=== PATIENT | female | born 1960 | race Caucasian/White ===

== ENCOUNTER 2022-08-24 07:33 | Inpatient (IN) ==
--- NOTE | 2022-06-20 09:19 | PAT Medication Instructions ---
Medication Instructions Date of Service June 20, 2022 Home Medications aspirin 81 mg capsule 81 mg PO QAM ibuprofen 800 mg tablet 800 mg PO TID insulin glargine U-300 conc 300 unit/mL (1.5 mL) subcutaneous pen (Toujeo SoloStar U-300 Insulin) 50 unit subcut BID insulin lispro 100 unit/mL subcutaneous pen 6 unit subcut AC metformin 500 mg tablet 500 mg PO QAM semaglutide 1 mg/dose (2 mg/1.5 mL) subcutaneous pen injector (Ozempic) 1 mg subcut WK tofacitinib 5 mg tablet (Xeljanz) 5 mg PO BID Continue as directed semaglutide 1 mg/dose (2 mg/1.5 mL) subcutaneous pen injector (Ozempic) 1 mg subcut WK ASK your surgeon for instructions ibuprofen 800 mg tablet 800 mg PO TID ASK your prescriber and surgeon tofacitinib 5 mg tablet (Xeljanz) 5 mg PO BID aspirin 81 mg capsule 81 mg PO QAM DO NOT take the morning of surgery insulin lispro 100 unit/mL subcutaneous pen 6 unit subcut AC metformin 500 mg tablet 500 mg PO QAM Take evening before surgery insulin glargine U-300 conc 300 unit/mL (1.5 mL) subcutaneous pen (Toujeo SoloStar U-300 Insulin) 50 unit subcut BID insulin lispro 100 unit/mL subcutaneous pen 6 unit subcut AC Insulin Dependent Diabetic Patients * Test your blood sugar the morning of surgery * If Blood Sugar is GREATER THAN 150, take HALF of your regular dose of: insulin glargine U-300 conc 300 unit/mL (1.5 mL) subcutaneous pen (Toujeo SoloStar U- 300 Insulin) take 25 minutes * If Blood Sugar is LESS THAN 150, DO NOT TAKE ANY: insulin glargine U-300 conc 300 unit/mL (1.5 mL) subcutaneous pen (Toujeo SoloStar U-300 Insulin) Other Notes If you have any questions please call us at [phone] or [phone] or [phone] or [phone]
--- NOTE | 2022-06-26 13:24 | Anesthesiology Consultation ---
Date of Service June 26, 2022 Assessment & Plan (1) Encounter for pre-operative examination: - COVID screening: Per assessment on 06/26: No known COVID-19 positive contacts or current COVID-19 related symptoms. Travel screen negative. Patient vaccinated. At surgeon discretion if preop Covid testing being done. - Check BSG AM DOS - Hx post-op nausea: Per patient, significant improvement with scope patch use in the past. Scope patch ordered for AM DOS. - Patient acceptable risk for surgery pending surgeon-ordered cardiology clearance ([facility]/surgeon obtaining). Chart Review Chart Review: Patient seen in Pre Admission Testing Teaching & Discussion Pre-Anesthesia Teaching/Discussion Notes: Instructed NPO after midnight before surgery,except medications with 15 cc of water. Medication instructions prov ided according to the PAT guidelines. History Surgery Operation Date: 07/10/22 11:05 Proposed Procedures p L2-L5 Decompression and Fusion, Spinal Cord Monitoring - Dominguez Degroot, Height/Weight Height: 5 ft 7.5 in Weight: 86.183 kg Allergies Allergy/AdvReac Type Severity Reaction Status Date / Time No Known Allergies Allergy Verified 06/19/22 12:19 Medications Home Medications Medication Instructions Recorded Confirmed Last Taken aspirin 81 mg capsule 81 mg PO QAM 06/19/22 06/19/22 Unknown ibuprofen 800 mg tablet 800 mg PO TID 06/19/22 06/19/22 Unknown insulin glargine U-300 conc 300 50 unit subcut BID 06/19/22 06/19/22 Unknown unit/mL (1.5 mL) subcutaneous pen (Toujeo SoloStar U-300 Insulin) insulin lispro 100 unit/mL 6 unit subcut AC 06/19/22 06/19/22 Unknown subcutaneous pen metformin 500 mg tablet 500 mg PO QAM 06/19/22 06/19/22 Unknown semaglutide 1 mg/dose (2 mg/1.5 1 mg subcut WK 06/19/22 06/19/22 Unknown mL) subcutaneous pen injector (Ozempic) tofacitinib 5 mg tablet (Xeljanz) 5 mg PO BID 06/19/22 06/19/22 Unknown Past Medical History Medical History CAD (coronary artery disease) s/p stent (2019) Follows with [facility] Chronic back pain Diabetes mellitus, type 2 History of COVID-19 02/2020 Rheumatoid arthritis Exercise / Class Metabolic Activity III < 4 Walking/Shop/Light housework Past Surgical History Surgical History History of back surgery laser surgery with spur removed History of cardiac cath 2019 > stent History of heart artery stent 2019 > stent Hx of foot surgery left PONV (postoperative nausea and vomiting) Past Anesthesia History No Hx of Anesthesia Complications (except post-op nausea) and No Family Hx of Anesthesia Complications History of PONV History of PONV (+ nausea (improvement with scope patch in past)) Social History Smoking Status: Never smoker Do You Dip or Chew Tobacco: No Hx Alcohol Use: No Hx Substance Use: No substance use type: does not use Review of Systems Patient denies chest pain, shortness of breath, dyspnea on exertion, fever, chills, cough, wheezing, palpitations. Physical Exam Vital Signs VITALS BP 146/85 P 103 TEMP 98.1 SP02 96%RA RESP 16 PHYSICAL Full cervical extension range of motion. Full TMJ range of motion. TMD 3 finger breaths Mallampati Score 2 Lungs: clear throughout to auscultation Cardiac: regular rate and rhythm, no murmurs noted Spine: normal Carotid arteries: negative bruit Extremities: no edema Lab Results Anesthesia Preop Results Results Anesthesia Widget: WBC 10.38 K/ul (4.8-10.8) 06/26/22 Hgb 14.6 g/dl (12.0-16.0) 06/26/22 Hct 42.1 % (37.0-47.0) 06/26/22 Plt 233 K/uL (130-400) 06/26/22 Na 140 mmol/L (136-145) 06/26/22 K 3.7 mmol/L (3.5-5.1) 06/26/22 Cl 105 mmol/L (98-107) 06/26/22 CO2 26 mmol/L (21-32) 06/26/22 BUN 16 mg/dl (6-23) 06/26/22 Creat 0.54 mg/dl (0.6-1.2) L 06/26/22 Glucose Level 123 mg/dl (70-99(Fasting)) H 06/26/22 PT 10.3 Seconds (9.0-12.0) 06/26/22 PTT 25.2 Seconds (21.0-31.0) 06/26/22 INR 1.0 (0.9-1.1) 06/26/22 HA1c 9.9 % (4.5-5.6) H 06/26/22 Urine Color Dark Yellow 06/26/22 Urine Appearance Clear (Clear) 06/26/22 Urine pH 5.5 (4.5-7.5) 06/26/22 Urine Specific [place] 1.027 (1.000-1.030) 06/26/22 Urine Protein 1+ (Negative) H 06/26/22 Urine Glucose (UA) 1+ (Negative) H 06/26/22 Urine Ketones Trace (Negative) H 06/26/22 Urine Blood Negative (Negative) 06/26/22 Urine Nitrite Negative (Negative) 06/26/22 Urine Bilirubin Negative (Negative) 06/26/22 Urine Urobilinogen Negative (Negative) 06/26/22 Urine Leukocyte Esterase Trace (Negative) H 06/26/22 Urine WBC (Auto) 1-5 /hpf (0-5) 06/26/22 Urine RBC (Auto) 10-30 /hpf (0-4) H 06/26/22 Urine Hyaline Casts (Auto) 5-10 /lpf (0-5) H 06/26/22 Urine Epithelial Cells (Auto) >30 /lpf (0-5) H 06/26/22 Urine Bacteria (Auto) Negative (Negative) 06/26/22 Blood Type A Negative 06/26/22 Antibody Screen NEGATIVE 06/26/22 Testing Laboratory Results * Josette at surgeon's office made aware of elevated HgbA1c* Electrocardiogram Date: 06/26/22 ST at 106bpm. Cannot r/o old septal infarct. *Anteroseptal infarct noted on 10/31/21 EKG scanned into [facility]* Chest X-Ray Date: 06/26/22 Findings: + NAD Echocardiogram Date: 01/02/22 EF 60%. No significant valvular disease. Evidence of pericardial fat pad. No pericardial effusion. Stress Test Date: 11/21/21 Type: nuclear No stress-induced changes of ischemia or symptoms to suggest ischemia. Large area of infarction present in the inferior lateral region. Evidence of mild to moderate LV dysfunction. LVEF 42%. Cervical Spine Date: 06/26/22 FINDINGS: Lateral views of the cervical spine in the neutral, flexion, and extension positions are obtained. No prior studies are available for comparison at the time of dictation. The skeletal structures are osteopenic. There is no radiographic evidence of fracture or subluxation on these lateral projections. Vertebral body height and alignment is maintained. Note that C6 and C7 are largely obscured by the patient's shoulders. The atlantodental articulation is maintained. There is no bony subluxation on the flexion/extension views. The spinolaminar line is maintained. Spinous processes appear intact. Tiny anterior osteophytes are seen throughout. The disc spaces are preserved. The prevertebral soft tissues are within normal limits. IMPRESSION: No acute bony abnormality is identified on these lateral projections. There is no bony subluxation on the flexion/extension views. Osteopenia and mild spondylotic change as above. COVID-19 Risk Screen Screening Information COVID-19 Screen Date: 06/26/22 Exposure 21 Days Family/Household +COVID Last 21 Days: No Exposure 10 Days Any COVID Exposure Last 10 Days: No Symptoms Last 10 Days Experienced COVID Sx Last 10 Days: No + COVID 0-90 Days COVID + in Last 0-90 Days: No
[~2022-08-24 07:33] MED LIST: ACETAMINOPHEN 500 MG TAB PO SCH; CeleBREX 200 MG CAP PO SCH; GABAPENTIN 300 MG CAP PO SCH; LR 15ML/HR IV SCH; ceFAZolin 2000MG 2,000 MG/15 ML SYR IV SCH
[2022-08-24] MEDS ORDERED: SCOPOLAMINE 1 MG TDSY TD ONE ×2 (08:52→08:54)
[2022-08-24] MEDS ORDERED: fentaNYL citrate PF 100 MCG/2 ML VIAL IV PRN (08:54)
[2022-08-24] MEDS ORDERED: ONDANSETRON INJ 2 MG/ML 2 ML VIAL ONE ×2 (08:54→10:59)
[2022-08-24] MEDS ORDERED: PROPOFOL IV EMULSION 10 MG/ML 20 ML VIAL IV ONE (08:54)
[2022-08-24] MEDS ORDERED: ePHEDrine sulfate 50 MG/ML AMP IV PRN (08:54)
[2022-08-24] MEDS ORDERED: LIDOCAINE 2% 2 ML VIAL/AMP(20MG/ML) INFIL ONE (08:54)
[2022-08-24] MEDS ORDERED: ONDANSETRON INJ 2 MG/ML 2 ML VIAL IV PRN ×2 (08:54→16:09)
[2022-08-24] MEDS ORDERED: ATROPINE SULFATE 0.1 MG/ML 10ML SYR IV PRN (08:54)
[2022-08-24] MEDS ORDERED: HYDROmorphone INJ 2 MG/ML SYR/VIAL IV PRN (08:54)
[2022-08-24] MEDS ORDERED: ROCURONIUM BROMIDE 10 MG/ML 5 ML VIAL IV ONE ×4 (08:54→12:18)
--- NOTE | 2022-08-24 09:32 | History & Physical Bridge Note ---
Date of Service August 24, 2022 History & Physical Bridge Note I have examined the patient, reviewed the History & Physical and in the interval since the performance of the History & Physical I have noted the following changes of clinical significance: no changes noted
--- NOTE | 2022-08-24 09:32 | History & Physical Report ---
Date of Service August 24, 2022 Assessment & Plan (1) Neurogenic claudication due to lumbar spinal stenosis: Plan: L2-L5 decompression and fusion History of Present Illness Chief Complaint: Back and leg pain Primary Care Provider: Patrick Ortega This is a 61-year-old female presents with chronic persistent back and leg pain after failing course of nonoperative care is here for surgical intervention. Allergies Allergy/AdvReac Type Severity Reaction Status Date / Time No Known Allergies Allergy Verified 08/24/22 08:14 Home Medications Medication Instructions Recorded Confirmed Type aspirin 81 mg capsule 81 mg PO QAM 06/19/22 08/24/22 History ibuprofen 800 mg tablet 800 mg PO TID 06/19/22 08/24/22 History insulin glargine U-300 conc 300 50 unit subcut BID 06/19/22 08/24/22 History unit/mL (1.5 mL) subcutaneous pen (Toujeo SoloStar U-300 Insulin) insulin lispro 100 unit/mL 6 unit subcut AC 06/19/22 08/24/22 History subcutaneous pen metformin 500 mg tablet 500 mg PO QAM 06/19/22 08/24/22 History semaglutide 1 mg/dose (2 mg/1.5 1 mg subcut WK 06/19/22 08/24/22 History mL) subcutaneous pen injector (Ozempic) tofacitinib 5 mg tablet (Xeljanz) 5 mg PO BID 06/19/22 08/24/22 History Past Med/Surg History Medical History CAD (coronary artery disease) s/p stent (2019) Follows with [facility] Chronic back pain Diabetes mellitus, type 2 History of COVID-19 02/2020 Rheumatoid arthritis Surgical History History of back surgery laser surgery with spur removed History of cardiac cath 2019 > stent History of heart artery stent 2019 > stent Hx of foot surgery left PONV (postoperative nausea and vomiting) Social History Smoking Status: Never smoker Second Hand Exposure: No; Do You Dip or Chew Tobacco: No; Tobacco Cessation Education Requested by Patient: No Hx Alcohol Use: No Hx Substance Use: No Preferred Language: Azeri Communication Ability: Effective Brim Molder Required: No Beliefs That Will Affect Care: None Current Living Situation: Alone Feels Safe at Home: Yes Safety Concerns: Feels Safe At This Time Assistive Devices: Glasses Physical Exam Physical Exam: Patient is alert and oriented Heart regular rhythm Lungs clear Results & Data Results & Data Vital Signs (Past 12 Hours) Vital Signs Temp Pulse Resp BP Pulse Ox O2 Del Method 08/24/22 08:20 36.3 C L 93 H 20 148/86 H 96 Room Air
[2022-08-24] MEDS ORDERED: MIDAZOLAM HCL 1 MG/ML 2ML VIAL ONE (09:33)
[2022-08-24] MEDS ORDERED: fentaNYL citrate PF 100 MCG/2 ML VIAL ONE ×2 (09:33→12:14)
[2022-08-24] MEDS ORDERED: BUPIVACAINE/EPINEPHRINE 0.5% MPF 1:200,000 30 ML VIAL ONE (10:03)
[2022-08-24] MEDS ORDERED: ceFAZolin 330 MG/ML 1 GM VIAL ONE (10:04)
[2022-08-24] MEDS ORDERED: FAMOTIDINE/PF 20 MG/2 ML VIAL IV ONE (10:09)
[2022-08-24] MEDS ORDERED: ALBUMIN HUMAN 5% 12.5 GM/250 ML VIAL IV ONE ×2 (13:13→15:04)
[2022-08-24] MEDS ORDERED: FLOSEAL HEMOSTATIC MATRIX 10ML TOP ONE (13:30)
[2022-08-24] MEDS ORDERED: METOCLOPRAMIDE HCL INJ 5 MG/ML 2 ML VIAL ONE (13:35)
[2022-08-24] MEDS ORDERED: NEOSTIGMINE METHYLSULFATE 1 MG/ML 10ML VIAL ONE (13:40)
--- NOTE | 2022-08-24 13:40 | Operative Report ---
Post Operative Report Pre & Post Diagnosis Operation Date: 08/24/22 09:15 Pre-Op Diagnosis: Spinal Stenosis, Lumber Region with Neurogenic claudication Post-Op Diagnosis: Spinal Stenosis, [place] Region with Neurogenic claudication I identified the patient and participated in the time-out.: Yes Procedure Operation Date: 08/24/22 09:15 Actual Procedures #1 lumbar decompression bilaterally facetectomies and foraminotomies L1-L2, L2- L3, L3-L4 and L4-L5. #2 posterior spinal fusion L2-L5. #3 placement posterior segmental instrumentation L2-L5. #4 interbody fusion L2-L3 L3-L4 L4-L5. #5 placement of Spira 9 x 26 mm at L2-L3, 11 x 26 mm at L3-L4 and 12 x 26 mm at L4- 5. #6 placement locally harvested morselized autograft in the posterior gutters. #7 placement I factor amount of the test in the interbody space and posterior gutters. Surgeon Dominguez Degroot, DO Package Liner Efraín Looney Estimated Blood Loss 850 Findings See Below The patient is 5 foot 7 weighing over 90 kg with a BMI in excess of 30. This combined with an EBL of greater than 800 cc. Significant technical difficulty adding at least 50% increased operative time. Specimens None Indications This is a 61-year-old female who presents above-mentioned diagnosis and failing course of nonoperative care she is here for surgical intervention. Description of Procedure Patient was met with identified informed consent obtained. Patient was then taken to the operative suite underwent a patient placed in a prone position on the Williams table top Joshua frame. All bony promises well-padded eyes inspected to ensure no external pressure placed upon the. This point the lumbar spine was prepped and draped in the normal sterile fashion. Sharp dissection with the assistance of Bovie cautery performed down to and exposing the lamina and transverse processes of L to L3-L4-L5 bilaterally. From caudal cephalad fashion complete laminectomy of L4 L3 L2 and partial laminectomy of L1 was performed including bilateral medial facetectomies and foraminotomies addressing severe spinal stenosis. Pedicle screws were then placed in L2-L3 L4-5 bilaterally with assistance of fluoroscopy and the properly sized shante placed. By way of a trans foraminal approach on the left a complete discectomy of L4-L5 was performed endplates curetted to subcortical bleeding bone and a 12 x 26 mm Spira cage with I factor tapped in position. Then proceeded to L3-L4 and again by way of transforaminal approach on the left complete discectomy performed endplates curetted to subcortical bleeding bone and 11 x 26 mm Spira cage with I factor tapped in position. Lastly proceeded L2-L3 and again by way of a trans foraminal approach and left complete discectomy performed endplates curetted to subcortically bone and 9 x 26 mm Spira cage with I factor tapped in position. The rods were then locked in final position bilaterally. The transverse processes of L2 L3-L4-L5 burred to subcortically bone. I factor amount of the test and locally harvested morselized autograft placed in the posterior gutters. 15 round BAUDILIO drain inserted. The incision was then closed with 1 Vicryl in the fascia 2-0 Vicryl subcutaneously and 4 Monocryl for final skin closure. Steri- Strips sterile dressings placed. Patient awakened taken to PACU stable condition. Please note spinal cord monitoring visualized at the procedure no changes noted. Lastly Efraín Looney was present out the entire surgeon while the patient positioning complex portions of the surgery and final skin closure. I attest to the content of the Intraoperative Record and any orders documented therein. Any exceptions are noted below.
[2022-08-24] MEDS ORDERED: GLYCOPYRROLATE 0.2 MG/ML VIAL ONE (13:41)
[2022-08-24] MEDS ORDERED: DEXAMETHASONE SOD INJ 4 MG/ML VIAL ONE (13:44)
[2022-08-24] MEDS ORDERED: HYDROmorphone INJ 1 MG/ML SYRINGE ONE (13:58)
--- NOTE | 2022-08-24 14:02 | Fluoroscopy Report ---
FL lumbar spine 2-3V CLINICAL HISTORY: L2-L5 DECOMPRESSION AND FUSION COMPARISON STUDY: None. FLUOROSCOPY TIME: 38 seconds. Ka, r: 31.97 mGy FLUOROSCOPIC IMAGES: 2 FINDINGS: Fluoroscopy was provided during L2-L3, L3-L4 and L4-L5 discectomies with interbody spacer p lacement. Posterior decompression is noted with bilateral pedicle screws at the L2, L3, L4 and L5 lev els. IMPRESSION: Fluoroscopy provided during L2-L5 discectomies, posterior decompression and bilateral pe dicle screw fusion. ACT 112: Negative or not required by law. Electronically signed by: Trever Diaz M.D. 08/24/2022 2:01 PM
[2022-08-24] MEDS ORDERED: ALBUMIN 5% 250 ML IV ONE (15:03)
--- NOTE | 2022-08-24 15:40 | Anesthesiology Progress Note ---
Date of Service August 24, 2022 Anesthesia Post Procedure Vital Signs Vital Signs: Temp Pulse Pulse Resp BP Pulse Ox O2 Del Method 08/24/22 15:30 89 13 128/74 97 Nasal Cannula 08/24/22 15:20 87 13 116/62 95 Nasal Cannula 08/24/22 15:10 85 13 113/63 98 Nasal Cannula 08/24/22 15:00 87 13 98/55 L 99 Nasal Cannula 08/24/22 14:50 85 13 93/45 L 98 Nasal Cannula 08/24/22 14:40 85 12 91/43 L 95 Oxymask 08/24/22 14:30 85 12 99/54 L 98 Oxymask 08/24/22 14:20 83 14 89/48 L 97 Oxymask 08/24/22 14:10 85 14 87/48 L 97 Oxymask 08/24/22 13:58 36.2 C L 87 20 97/58 L 97 Oxymask 08/24/22 08:20 36.3 C L 93 H 20 148/86 H 96 Room Air O2 Flow Rate 08/24/22 15:30 3 08/24/22 15:20 3 08/24/22 15:10 3 08/24/22 15:00 3 08/24/22 14:50 3 08/24/22 14:40 3 08/24/22 14:30 8 08/24/22 14:20 6 08/24/22 14:10 6 08/24/22 13:58 6 08/24/22 08:20 Pain Intensity Back: Pain Intensity: 4 Transfer of Care Handoff Completed per policy Notes Mental Status: alert / awake / arousable Patient Amnestic to Procedure: Yes Nausea / Vomiting: adequately controlled Pain: adequately controlled Airway Patency, RR, SpO2: stable & adequate BP & HR: stable & adequate Hydration State: stable & adequate Anesthetic Complications: no major complications apparent and Pt Satisfied with anesthetic care Notes: Pt with low grade hypotn in pacu. Received 1L LR bolus with little effect. Pt responded to 250ml of 5%albumin with normalization of SBP. Pt mentating well throughout and was asymptomatic. To floor
[2022-08-24] MEDS: SODIUM CHLORIDE 0.9% 1000ML 1,000 ML IV SCH ×2 (16:00→23:00)
[2022-08-24] MEDS ORDERED: LORazepam 2 MG/1 ML VIAL IV PRN (16:09)
[2022-08-24] MEDS ORDERED: ONDANSETRON 4 MG OD TAB PO PRN (16:09)
[2022-08-24] MEDS ORDERED: ACETAMINOPHEN 500 MG TAB PO PRN (16:09)
[2022-08-24] MEDS ORDERED: SOD PHOSPHATE/SOD BIPHOSPHATE ENEMA 132 ML BTL PR PRN (16:09)
[2022-08-24] MEDS ORDERED: HYDROmorphone INJ 1 MG/ML SYRINGE IV PRN (16:09)
[2022-08-24] MEDS ORDERED: bisacodyL 10 MG SUPP PR PRN (16:09)
[2022-08-24] MEDS ORDERED: ACETAMINOPHEN 1,000 MG/100 ML VIAL IV PRN (16:09)
[2022-08-24] MEDS ORDERED: DO NOT ADMINISTER FLU VACCINE PRN (16:09)
[2022-08-24] MEDS ORDERED: traMADol HCL 50 MG TABLET PO PRN (16:09)
[2022-08-24] MEDS ORDERED: diphenhydrAMINE Capsule 25 MG CAP PO PRN (16:09)
[2022-08-24] MEDS ORDERED: DO NOT ADMINISTER PNEUMOCOCCAL VACCINE PRN (16:09)
[2022-08-24] MEDS ORDERED: MAGNESIUM HYDROXIDE SUSP 30 ML UDC PO PRN (16:09)
[2022-08-24] MEDS ORDERED: PROMETHAZINE HCL 12.5 MG in SODIUM CHLORIDE 0.9% 50 ML IV PRN (16:09)
[2022-08-24] MEDS ORDERED: FAMOTIDINE 20 MG TAB PO PRN (16:09)
[2022-08-24] MEDS ORDERED: ALUMINUM/MAGNESIUM SUSP 30 ML UDC PO PRN (16:09)
[2022-08-24] MEDS ORDERED: LORazepam 0.5 MG TAB PO PRN (16:09)
[2022-08-24] MEDS ORDERED: PHARMACY GLYCEMIC MGMT CONSULT PRN (16:09)
[2022-08-24] MEDS ORDERED: METOCLOPRAMIDE HCL INJ 5 MG/ML 2 ML VIAL IV PRN (16:09)
[2022-08-24] MEDS ORDERED: HYDROmorphone INJ 0.5 MG/0.5 ML SYR IV PRN (16:09)
[2022-08-24] MEDS ORDERED: hydrOXYzine HCl 25 MG TAB PO PRN (16:09)
[2022-08-24] MEDS ORDERED: NALOXONE HCL 0.4 MG/1 ML VIAL/CARP IV PRN (16:09)
[2022-08-24] MEDS: CHECK SCOPOLAMINE PATCH PLACEMENT SCH (16:13)
[2022-08-24] MEDS: oxyCODONE HCL IR 5 MG TAB (IMMEDIATE RELEASE) PO PRN ×2 (16:58→21:41)
[2022-08-24] MEDS: INSULIN ASPART PER UNIT CHARGE SC SCH ×2 (17:53→21:43)
[2022-08-24] MEDS ORDERED: GLUCOSE 40% GEL 15 GM TUBE PO PRN (19:00)
[2022-08-24] MEDS ORDERED: GLUCOSE 10 TAB/TUBE PO PRN (19:00)
[2022-08-24] MEDS ORDERED: GLUCAGON FOR INJ 1 MG VIAL IM PRN (19:00)
[2022-08-24] MEDS ORDERED: DEXTROSE 50% 50 ML SYRINGE IV PRN (19:00)
[2022-08-24] MEDS ORDERED: CARBOHYDRATES FOR HYPOGLYCEMIA PO PRN (19:00)
[2022-08-24] MEDS: ceFAZolin 2000MG 2,000 MG/15 ML SYR IV SCH (19:29)
[2022-08-24] MEDS ORDERED: LANTUS PER UNIT CHARGE SC STA (21:11)
[2022-08-24] MEDS: DOCUSATE SODIUM/SENNA 50/8.6MG TAB PO SCH (21:42)
--- NOTE | 2022-08-24 23:46 | Hospitalist Consultation ---
Date of Consultation August 24, 2022 Assessment & Plan (1) Neurogenic claudication due to lumbar spinal stenosis: s/p lumbar decompression 08/[address] Degroot VTE/Pain/Bowel management per primary orthopedics team (2) CAD (coronary artery disease): s/p PCI due to abnormal stress testing in 2018, clopidogrel since discontinued ASA to restart tomorrow per primary team, unclear why she is not on a BB (pt reports never been on metoprolol/carvedilol/bisoprolol), intolerant to statins (planning on starting PCSK9 inhibitor as outpatient) (3) Rheumatoid arthritis: Usually on Xeljanz and ibuprofen - both on hold for surgery Unlikely to get flare up while on steroids from surgery but will defer to surgery. Other than the slight increased risk of DVT/infections I see no reason Xeljanz cannot be continued in the hospital or on discharge. When to restart ibuprofen is a surgical decision based on bleeding risk and will defer to her primary orthopedic team but no solis to restart this while on dexamethasone. (4) Diabetes mellitus, type 2: Pharmacy consulted for glycemic control by her primary orthopedic team Usual home meds: Takes Ozempic on Saturday but planning to switch to Trulicity in the near futre due to insurance coverage Metformin, agree to continue holding this Toujeo 50 units BID, switched to Lantus while here Humalog 6 units AC, switched to Novolog while here HbA1C 9.9 in June but she reports better glucose control since Humalog added since this value Will defer insulin regimen to pharmacy but likely to need increase to her home dosing due to dexamethasone use History of Present Illness Reason for Consultation: Medical management Attending Physician: Dominguez Degroot, DO History of Present Illness Chelsey Deleon is a 61 year old female here for elective lumbar decompression due to neurogenic claudication performed today by Dr Degroot. Estimated blood loss 850ml. Mild hypotension post operatively responded to 1L LR and albumin. No current dizziness or lightheadedness but yet to get out of bed. She reports her pre-operative symptoms of pain mainly down her left leg have already improved post surgery. No concerns or questions from the patient. T2DM - Reports her glucose control has been better since addition of Humalog sin ce last HbA1C CAD - s/p PCI with stent in 2019, no symptoms prior to workup for this but her from CAD and strong family history that she became concerned about herself and had an abnormal stress test which lead to cardiac catheterization RA - currently no concern of flare. Takes Xeljanz and routine ibuprofen Allergies Allergy/AdvReac Type Severity Reaction Status Date / Time No Known Allergies Allergy Verified 08/24/22 08:14 Home Medications Medication Instructions Recorded Confirmed Type aspirin 81 mg capsule 81 mg PO QAM 06/19/22 08/24/22 History ibuprofen 800 mg tablet 800 mg PO TID 06/19/22 08/24/22 History insulin glargine U-300 conc 300 50 unit subcut BID 06/19/22 08/24/22 History unit/mL (1.5 mL) subcutaneous pen (Toujeo SoloStar U-300 Insulin) insulin lispro 100 unit/mL 6 unit subcut AC 06/19/22 08/24/22 History subcutaneous pen metformin 500 mg tablet 500 mg PO QAM 06/19/22 08/24/22 History semaglutide 1 mg/dose (2 mg/1.5 1 mg subcut WK 06/19/22 08/24/22 History mL) subcutaneous pen injector (Ozempic) tofacitinib 5 mg tablet (Xeljanz) 5 mg PO BID 06/19/22 08/24/22 History Patient History Medical History CAD (coronary artery disease) s/p stent (2019) Follows with [facility] Chronic back pain Diabetes mellitus, type 2 History of COVID-19 02/2020 Rheumatoid arthritis Surgical History History of back surgery laser surgery with spur removed History of cardiac cath 2019 > stent History of heart artery stent 2019 > stent Hx of foot surgery left PONV (postoperative nausea and vomiting) Social History Smoking Status: Never smoker Second Hand Exposure: No; Do You Dip or Chew Tobacco: No; Tobacco Cessation Education Requested by Patient: No Hx Alcohol Use: No Hx Substance Use: No Preferred Language: Burmese Communication Ability: Effective Case Management Associate Required: No Beliefs That Will Affect Care: None Current Living Situation: Alone Feels Safe at Home: Yes Safety Concerns: Feels Safe At This Time Assistive Devices: Glasses Review of Systems Review of Systems: All systems reviewed & are unremarkable except as noted in HPI & below Physical Exam Constitutional: WD/WN, vitals as above Eyes: + anicteric sclerae; normal pupil size ENMT: external ear and nose normal, oropharynx normal Neck: trachea midline, no thyromegaly Respiratory: normal respiratory effort, lungs clear to auscultation Cardiovascular: RRR, no murmur, no edema Gastrointestinal (Abdomen): normal bowel sounds, soft, nontender, no hepatosplenomegaly Skin: no rashes, warm and dry Neurologic: ankle dorsiflex/plantarflex b/l 5/5, normal sensation in b/l lower extremities Psychiatric: A+Ox3, euthymic affect Results & Data Results & Data Vital Signs (Past 12 Hours) Vital Signs Temp Pulse Pulse Resp BP Pulse Ox O2 Del Method 08/24/22 17:51 36.5 C 101 H 16 133/79 97 Room Air 08/24/22 16:54 36.5 C 90 16 128/79 96 Room Air 08/24/22 16:30 36.4 C L 90 16 119/75 96 Room Air 08/24/22 15:55 36.5 C 93 H 18 130/77 98 Room Air 08/24/22 15:30 89 13 128/74 97 Nasal Cannula 08/24/22 15:20 87 13 116/62 95 Nasal Cannula 08/24/22 15:10 85 13 113/63 98 Nasal Cannula 08/24/22 15:00 87 13 98/55 L 99 Nasal Cannula 08/24/22 14:50 85 13 93/45 L 98 Nasal Cannula 08/24/22 14:40 85 12 91/43 L 95 Oxymask 08/24/22 14:30 85 12 99/54 L 98 Oxymask 08/24/22 14:20 83 14 89/48 L 97 Oxymask 08/24/22 14:10 85 14 87/48 L 97 Oxymask 08/24/22 13:58 36.2 C L 87 20 97/58 L 97 Oxymask 08/24/22 08:20 36.3 C L 93 H 20 148/86 H 96 Room Air O2 Flow Rate 08/24/22 17:51 08/24/22 16:54 08/24/22 16:30 08/24/22 15:55 08/24/22 15:30 3 05/05/23 15:20 3 08/24/22 15:10 3 08/24/22 15:00 3 08/24/22 14:50 3 08/24/22 14:40 3 08/24/22 14:30 8 08/24/22 14:20 6 08/24/22 14:10 6 08/24/22 13:58 6 08/24/22 08:20 PG Care Time/CCT Total # of Minutes Spent Total Time Spent with Patient: Total time spent is greater than 50% in coordination of care (as documented) at patient's floor/unit and/or counseling patient: Coding Level of Care Code 63552 IN/OBS CONSULT LVL 4,60M Diagnoses Neurogenic claudication due to lumbar spinal stenosis M48.062 CAD (coronary artery disease) I25.10 Rheumatoid arthritis M06.9 Diabetes mellitus, type 2 E11.9
[2022-08-25] MEDS: INSULIN ASPART PER UNIT CHARGE SC SCH ×6 (00:01→20:30)
[2022-08-25] MEDS: CHECK SCOPOLAMINE PATCH PLACEMENT SCH ×4 (00:29→23:03)
[2022-08-25 01:08] LABS: Hematocrit (blood only) 27.5 % (37.0-47.0); Hemoglobin 9.3 g/dl (12.0-16.0); Mean Corpuscular Hemoglobin 32.4 pg (25.0-34.0); Mean Corpuscular Hgb Conc 33.8 g/dL (32.0-36.0); Mean Corpuscular Volume 95.8 fL (80.0-100.0); Mean Platelet Volume 11.2 fL (9.4-12.4); Platelet Count 159 K/uL (130-400); RDW Coefficient of Variation 13.1 % (11.5-14.5); RDW Standard Deviation 45.6 fL (36.4-46.3); Red Blood Count 2.87 M/uL (4.20-5.40); White Blood Count 9.91 K/ul (4.8-10.8)
[2022-08-25 01:25] LABS: BUN Creatinine Ratio 29.4 (10-20); Calcium 7.7 mg/dl (8.6-10.3); Creatinine Clr Calc Pharmacy 104.1 ml/min; Est GFR (Non-African American) 95.7 ml/min; Potassium 4.4 mmol/L (3.5-5.1)
[2022-08-25] MEDS: oxyCODONE HCL IR 5 MG TAB (IMMEDIATE RELEASE) PO PRN ×4 (02:22→20:19)
[2022-08-25] MEDS: ceFAZolin 2000MG 2,000 MG/15 ML SYR IV SCH (04:09)
[2022-08-25] MEDS: SODIUM CHLORIDE 0.9% 1000ML 1,000 ML IV SCH ×2 (05:36→12:46)
[2022-08-25] MEDS: POLYETHYLENE (MIRALAX) 17 GM PACK PO SCH ×4 (05:37→23:03)
[2022-08-25 08:05] LABS: Hematocrit (blood only) 26.8 % (37.0-47.0); Hemoglobin 8.9 g/dl (12.0-16.0); Mean Corpuscular Hemoglobin 32.1 pg (25.0-34.0); Mean Corpuscular Hgb Conc 33.2 g/dL (32.0-36.0); Mean Corpuscular Volume 96.8 fL (80.0-100.0); Mean Platelet Volume 11.1 fL (9.4-12.4); Platelet Count 139 K/uL (130-400); RDW Coefficient of Variation 13.2 % (11.5-14.5); RDW Standard Deviation 46.9 fL (36.4-46.3); Red Blood Count 2.77 M/uL (4.20-5.40); White Blood Count 9.12 K/ul (4.8-10.8)
[2022-08-25 08:24] LABS: BUN Creatinine Ratio 35.8 (10-20); Calcium 7.6 mg/dl (8.6-10.3); Creatinine Clr Calc Pharmacy 133.5 ml/min; Est GFR (African American) 120.5 ml/min; Est GFR (Non-African American) 103.9 ml/min; Potassium 3.9 mmol/L (3.5-5.1)
[2022-08-25] MEDS: ASPIRIN 81 MG ECTAB PO SCH (08:42)
[2022-08-25] MEDS: dexAMETHasone 6 MG in SYRINGE 0 ML IV SCH (08:42)
--- NOTE | 2022-08-25 08:49 | Orthopedic Progress Note ---
Date of Service August 25, 2022 Assessment & Plan (1) Neurogenic claudication due to lumbar spinal stenosis: Plan: This time we will continue to advance her bowel regiment. We will have her undergo physical therapy as tolerated. We will plan for rehab next week. Admission and Anticipated Discharge Date Admission Date: August 24, 2022 Subjective Patient complaining of back pain. She has not had a bowel movement yet. Denies any leg pain. Physical Exam Physical Exam: On exam patient is in the chair at the bedside. Is constricted testing. Dressings in place and drain functioning. Results & Data Vital Signs (Past 12 Hours) Vital Signs Temp Pulse Resp BP BP Pulse Ox O2 Del Method 08/25/22 08:31 94 H 17 103/64 96 Room Air 08/25/22 07:32 36.8 C 90 16 98/58 L 94 Room Air 08/25/22 03:08 36.7 C 90 18 95/57 L 98 Room Air 08/24/22 23:30 93/55 L 08/24/22 21:40 Room Air 08/24/22 22:55 36.9 C 94 H 18 80/48 L 81/55 L 95 Room Air
[2022-08-25] MEDS ORDERED: LANTUS PER UNIT CHARGE SC ONE (09:00)
[2022-08-25] MEDS ORDERED: ASPIRIN 81 MG ECTAB PO SCH (09:00)
--- NOTE | 2022-08-25 10:40 | Pharmacy Report ---
Pharmacy Glycemic Short Note 2 - Date of Service August 25, 2022 - Glycemic Short BSG Results (Last 24 hours): 08/24/22 08/24/22 08/24/22 14:05 16:55 20:44 Glucose POC Glucose 169 H 179 H 264 H 08/24/22 08/25/22 08/25/22 23:55 00:33 03:46 Glucose 133 H POC Glucose 143 H 128 H 08/25/22 08/25/22 07:45 08:09 Glucose 145 H POC Glucose 140 H OUTPATIENT ANTIDIABETIC REGIMEN: * Toujeo 50 units BID * Lispro 6 units with meals * Ozempic ASSESSMENT: * Ms Deleon is a 61 y/o F with a PMH of T2DM who presents for spinal surgery. * She received dexamethasone 4 mg during surgery and was started on dexamethasone 6 mg IV daily x 3 days. * Patient is POD 1. * Patient received 50 units of basal yesterday (25 units BID) + 17 units of Novolog. BSGs were 179-264 mg/dL after surgery. Overnight BSGs were 143-128 mg/dL. * For today (POD 1 with dexamethasone 6 mg IV), will start with home dose of Lantus 50 units and 25 units tonight. Extra 25 units to help cover steroid hyperglycemia. * For Novolog, will tighten CR to help with steroid hyperglycemia. PLAN FOR INPATIENT GLYCEMIC CONTROL: * Basal insulin * Lantus 50 units SQ daily + 25 units SQ HS * Bolus insulin * NovoLog per scale ACHS or Q6hrs while NPO * Goal Range: Low 110 mg/dL - High 140 mg/dL * Correction Factor: 20 mg/dL/unit * Nutritional / Prandial insulin per carb ratio of 1 unit per 5 grams CHO consumed
--- NOTE | 2022-08-25 12:54 | Hospitalist Progress Note ---
Date of Service August 25, 2022 Assessment & Plan (1) Neurogenic claudication due to lumbar spinal stenosis: Plan: s/p lumbar decompression 08/[address] Degroot. Postoperative day #1. Pain control measures. Supportive care. Physical therapy (2) CAD (coronary artery disease): Plan: s/p PCI due to abnormal stress testing in 2018, clopidogrel since discontinued. Stable. Continue current medical management. (3) Rheumatoid arthritis: Plan: Usually on Xeljanz and ibuprofen - both are currently on hold. She is currently on parenteral steroid therapy. (4) Diabetes mellitus, type 2: Plan: ADA diet. Sliding scale coverage . Her usual home medications include Ozempic, metformin, Toujeo, and Humalog. Metformin is on hold . HbA1C 9.9 in June. Plan Anticipate eventual discharge to home per primary service Admission and Anticipated Discharge Date Admission Date: August 24, 2022 Subjective Alert and oriented. No distress. Orthopedic entry noted. Blood count is down slightly to 9.3. We will follow. Her blood pressure runs on the low side but she is asymptomatic. She is on no current antihypertensives. Glucose 133. Metformin is temporarily on hold Review of Systems Review of Systems: Constitutional-no fever or chills ENT-no blurred vision, no double vision, no epistaxis, no sore throat Respiratory-no cough, no wheezing, no shortness of breath Cardiac-no palpitations, no chest pain, no syncope GI-no nausea, vomiting, diarrhea, melena, hematochezia -no urinary retention, no urinary incontinence, no dysuria, no hematuria Musculoskeletal-low back discomfort with movement at surgical site Skin-no bruising, no rashes, no pruritus Neuro-no isolated weakness, no paresthesia Psych-no depression, no anxiety Physical Exam Physical Exam: General-alert and oriented x3, no fevers, no chills HEENT-head atraumatic and normocephalic, pupils equal and reactive to light, extraocular muscles intact Neck-no lymphadenopathy or thyromegaly, trachea midline Chest-clear to auscultation percussion. No rales wheezing or rhonchi Cardiac-regular rate and rhythm, normal S1 and S2 Abdomen-normal bowel sounds, nontender, no hepatosplenomegaly Extremities-no cyanosis, clubbing, or edema. Limited range of motion lumbar spine area postoperatively Neuro-cranial nerves II through XII intact, motor and sensory function within normal limits, strength symmetrical , no focal deficits Psych-normal affect, normal mood Results & Data Results & Data Vital Signs (Past 12 Hours) Vital Signs Temp Pulse Resp BP Pulse Ox O2 Del Method 08/25/22 08:31 94 H 17 103/64 96 Room Air 08/25/22 07:32 36.8 C 90 16 98/58 L 94 Room Air 08/25/22 03:08 36.7 C 90 18 95/57 L 98 Room Air Laboratory Results 08/25/22 07:45 08/25/22 07:45 PG Care Time/CCT Total # of Minutes Spent Total Time Spent with Patient: Total time spent is greater than 50% in coordination of care (as documented) at patient's floor/unit and/or counseling patient: Coding Level of Care Code 51203 SUB INP/OBS CARE 3/50MIN Diagnoses Neurogenic claudication due to lumbar spinal stenosis M48.062 CAD (coronary artery disease) I25.10 Rheumatoid arthritis M06.9 Diabetes mellitus, type 2 E11.9
[2022-08-25] MEDS: DOCUSATE SODIUM/SENNA 50/8.6MG TAB PO SCH (20:20)
[2022-08-25] MEDS ORDERED: LANTUS PER UNIT CHARGE SC SCH (21:00)
[2022-08-26] MEDS: oxyCODONE HCL IR 5 MG TAB (IMMEDIATE RELEASE) PO PRN ×5 (00:30→21:31)
[2022-08-26] MEDS: POLYETHYLENE (MIRALAX) 17 GM PACK PO SCH ×2 (06:03→12:32)
[2022-08-26 06:19] LABS: Basophils # (auto) 0.01 K/uL (0-0.2); Basophils % (auto) 0.1 %; Eosinophils # (auto) 0.04 K/uL (0-0.50); Eosinophils % (auto) 0.5 %; Hemoglobin 8.7 g/dl (12.0-16.0); Immature Granulocytes # (auto) 0.05 K/uL (0.01-0.20); Immature Granulocytes % (auto) 0.6 %; Lymphocytes # (auto) 1.37 K/uL (1.2-3.4); Lymphocytes % (auto) 17.5 %; Mean Corpuscular Hgb Conc 33.5 g/dL (32.0-36.0); Mean Corpuscular Volume 95.6 fL (80.0-100.0); Mean Platelet Volume 11.6 fL (9.4-12.4); Monocytes # (auto) 0.76 K/uL (0.11-0.59); Monocytes % (auto) 9.7 %; Neutrophils # (auto) 5.58 K/uL (1.40-6.50); Neutrophils % (auto) 71.6 %; Platelet Count 121 K/uL (130-400); RDW Coefficient of Variation 13.1 % (11.5-14.5); RDW Standard Deviation 45.8 fL (36.4-46.3); Red Blood Count 2.72 M/uL (4.20-5.40); White Blood Count 7.81 K/ul (4.8-10.8)
[2022-08-26 06:42] LABS: BUN Creatinine Ratio 53.7 (10-20); Calcium 7.8 mg/dl (8.6-10.3); Creatinine Clr Calc Pharmacy 172.6 ml/min; Est GFR (African American) 131.1 ml/min; Est GFR (Non-African American) 113.1 ml/min; Potassium 3.7 mmol/L (3.5-5.1)
--- NOTE | 2022-08-26 08:23 | Orthopedic Progress Note ---
Date of Service August 26, 2022 Assessment & Plan (1) Neurogenic claudication due to lumbar spinal stenosis: Plan: Chelsey is postoperative day 2 status post L2-5 decompression fusion. Maintain BAUDILIO drain. Continue with physical therapy/ambulation today. DVT prophylaxis is in the form of teds and SCDs. Anticipate discharge home possibly tomorrow. Admission and Anticipated Discharge Date Admission Date: August 24, 2022 Subjective Chelsey is postoperative day 2 status post L2-5 decompression and fusion. She has no complaints. Pain is controlled. BAUDILIO drain output last shift is 80 cc. H&H are 8.7 and 26.0 respectively. Yesterday in physical therapy ambling roughly 200 feet. Review of Systems Review of Systems: All systems reviewed & are unremarkable except as noted in HPI & below Physical Exam Physical Exam: Alert and oriented x3 No acute distress Lumbar dressing is clean dry intact with functioning BAUDILIO drain Calf soft and nontender bilaterally Strength intact bilateral lower extremities Results & Data Vital Signs (Past 12 Hours) Vital Signs Temp Pulse Resp BP Pulse Ox O2 Del Method 08/26/22 07:57 36.7 C 96 H 18 98/62 L 96 Room Air 08/25/22 20:32 36.3 C L 89 16 118/70 96 Room Air
[2022-08-26] MEDS: INSULIN ASPART PER UNIT CHARGE SC SCH ×4 (08:38→20:59)
[2022-08-26] MEDS: CHECK SCOPOLAMINE PATCH PLACEMENT SCH ×3 (08:39→23:48)
[2022-08-26] MEDS: dexAMETHasone 6 MG in SYRINGE 0 ML IV SCH (08:40)
[2022-08-26] MEDS: ASPIRIN 81 MG ECTAB PO SCH (08:40)
[2022-08-26] MEDS ORDERED: LANTUS PER UNIT CHARGE SC SCH (09:00)
[2022-08-26] MEDS: FERROUS SULFATE 325 MG TAB PO SCH ×2 (09:50→17:12)
--- NOTE | 2022-08-26 11:46 | Hospitalist Progress Note ---
Date of Service August 26, 2022 Assessment & Plan (1) Neurogenic claudication due to lumbar spinal stenosis: Plan: s/p lumbar decompression 08/[address] Degroot. Postoperative day #2. Pain control measures. Supportive care. Physical therapy (2) CAD (coronary artery disease): Plan: s/p PCI due to abnormal stress testing in 2019, clopidogrel since discontinued. Stable. Continue current medical management. (3) Rheumatoid arthritis: Plan: Usually on Xeljanz and ibuprofen - both are currently on hold. She is currently on parenteral steroid therapy. (4) Diabetes mellitus, type 2: Plan: ADA diet. Sliding scale coverage . Her usual home medications include Ozempic, metformin, Toujeo, and Humalog. Metformin has been restarted. Insulin glargine dosage uptitrated to her usual home dose. HbA1C 9.9 in June. Plan Anticipate eventual discharge to home per primary service. Hopefully tomorrow, August 27 Admission and Anticipated Discharge Date Admission Date: August 24, 2022 Subjective Alert and oriented. Postoperative day #2 after back surgery. Hemoglobin has drifted down to 8.7. Oral iron replacement started. She has also been restarted back on her usual metformin dosage and usual twice daily Lantus dosage. Review of Systems Review of Systems: Constitutional-no fever or chills ENT-no blurred vision, no double vision, no epistaxis, no sore throat Respiratory-no cough, no wheezing, no shortness of breath Cardiac-no palpitations, no chest pain, no syncope GI-no nausea, vomiting, diarrhea, melena, hematochezia -no urinary retention, no urinary incontinence, no dysuria, no hematuria Musculoskeletal-low back discomfort with movement at surgical site . Postop drain remains in place Skin-no bruising, no rashes, no pruritus Neuro-no isolated weakness, no paresthesia Psych-no depression, no anxiety Physical Exam Physical Exam: General-alert and oriented x3, no fevers, no chills HEENT-head atraumatic and normocephalic, pupils equal and reactive to light, extraocular muscles intact Neck-no lymphadenopathy or thyromegaly, trachea midline Chest-clear to auscultation percussion. No rales wheezing or rhonchi Cardiac-regular rate and rhythm, normal S1 and S2 Abdomen-normal bowel sounds, nontender, no hepatosplenomegaly Extremities-no cyanosis, clubbing, or edema. Limited range of motion lumbar spine area postoperatively Neuro-cranial nerves II through XII intact, motor and sensory function within normal limits, strength symmetrical , no focal deficits Psych-normal affect, normal mood Results & Data Results & Data Vital Signs (Past 12 Hours) Vital Signs Temp Pulse Resp BP Pulse Ox O2 Del Method 08/26/22 07:57 36.7 C 96 H 18 98/62 L 96 Room Air Laboratory Results 08/26/22 05:36 08/26/22 05:36 PG Care Time/CCT Total # of Minutes Spent Total Time Spent with Patient: Total time spent is greater than 50% in coordination of care (as documented) at patient's floor/unit and/or counseling patient: Coding Level of Care Code 72100 SUB INP/OBS CARE 3/50MIN Diagnoses Neurogenic claudication due to lumbar spinal stenosis M48.062 CAD (coronary artery disease) I25.10 Rheumatoid arthritis M06.9 Diabetes mellitus, type 2 E11.9
[2022-08-26] MEDS ORDERED: metFORMIN HCL ER 500 MG TABCR PO SCH (16:30)
[2022-08-26] MEDS: DOCUSATE SODIUM/SENNA 50/8.6MG TAB PO SCH (20:33)
[2022-08-26] MEDS: LANTUS PER UNIT CHARGE SC SCH (20:58)
[2022-08-27] MEDS: oxyCODONE HCL IR 5 MG TAB (IMMEDIATE RELEASE) PO PRN ×3 (01:21→11:06)
[2022-08-27 06:48] LABS: Basophils # (auto) 0.03 K/uL (0-0.2); Basophils % (auto) 0.2 %; Eosinophils # (auto) 0.13 K/uL (0-0.50); Eosinophils % (auto) 1.1 %; Hematocrit (blood only) 28.8 % (37.0-47.0); Hemoglobin 9.5 g/dl (12.0-16.0); Immature Granulocytes # (auto) 0.13 K/uL (0.01-0.20); Immature Granulocytes % (auto) 1.1 %; Lymphocytes # (auto) 2.44 K/uL (1.2-3.4); Lymphocytes % (auto) 20.2 %; Mean Corpuscular Hemoglobin 32.2 pg (25.0-34.0); Mean Corpuscular Volume 97.6 fL (80.0-100.0); Mean Platelet Volume 11.5 fL (9.4-12.4); Monocytes # (auto) 1.01 K/uL (0.11-0.59); Monocytes % (auto) 8.4 %; Neutrophils # (auto) 8.32 K/uL (1.40-6.50); Nucleated RBC # (auto) 0.02 K/uL (0-0.12); Nucleated RBC % (auto) 0.2 %; Platelet Count 162 K/uL (130-400); RDW Coefficient of Variation 13.2 % (11.5-14.5); RDW Standard Deviation 47.3 fL (36.4-46.3); Red Blood Count 2.95 M/uL (4.20-5.40); White Blood Count 12.06 K/ul (4.8-10.8)
[2022-08-27 07:01] LABS: BUN Creatinine Ratio 42.9 (10-20); Calcium 8.1 mg/dl (8.6-10.3); Creatinine Clr Calc Pharmacy 168.5 ml/min; Est GFR (Non-African American) 112.2 ml/min; Potassium 3.8 mmol/L (3.5-5.1)
[2022-08-27] MEDS: INSULIN ASPART PER UNIT CHARGE SC SCH (08:46)
[2022-08-27] MEDS: LANTUS PER UNIT CHARGE SC SCH (08:47)
[2022-08-27] MEDS: FERROUS SULFATE 325 MG TAB PO SCH (08:53)
[2022-08-27] MEDS: ASPIRIN 81 MG ECTAB PO SCH (08:54)
[2022-08-27] MEDS: dexAMETHasone 6 MG in SYRINGE 0 ML IV SCH (08:54)
--- NOTE | 2022-08-27 09:20 | Discharge Summary ---
Date of Service August 27, 2022 Admission HPI Per Admitting Provider This is a 61-year-old female presents with chronic persistent back and leg pain after failing course of nonoperative care is here for surgical intervention. Principal Diagnosis Lumbar spinal stenosis with neurogenic claudication Discharge Data Allergies Allergy/AdvReac Type Severity Reaction Status Date / Time No Known Allergies Allergy Verified 08/24/22 08:14 Consultations 08/24/22 16:09 Consult Hospitalist Routine Procedures Performed Operation Date: 08/24/22 09:15 Actual Procedures p L2-L5 Decompression and Fusion, Spinal Cord Monitoring(Not Applicable) - Dominguez Degroot DO Ordered Studies 08/24/22 09:15 FL lumbar spine 2-3V Routine Hospital Course (1) Neurogenic claudication due to lumbar spinal stenosis: Patient underwent multilevel lumbar decompression fusion tolerated this well was taken to orthopedic for postop labor postop day 1 she was up and ambulating progressed to postop day #2 on postop day #3 BAUDILIO drainage is decreasing appropriate. Pain well controlled. Excellent strength testing. Subsequently discharged home. Discharge orders and instructions found in chart for further review. Total Time Total Time Spent Total Time Spent (In Minutes): 20 minutes Discharge Plan Discharge Items Patient Disposition: Home - Self-Care Reason For Visit: Spinal Stenosis, [place] with Neurogenic Cla Discharge Diagnosis: Lumbar spinal stenosis with claudication Activity: As commented below Non-emergency contact: Primary Care Provider Call non-emergency contact if: you have any medication questions Follow-up/Referrals: PCP,NO [Physician] - Diet: Regular Addtl Attending Provider Instructions: ACTIVITY RECOMMENDATIONS: SELF CARE INSTRUCTIONS AFTER THORACIC/LUMBAR FUSIONS 1. You may walk to your tolerance. It is good exercise for your legs and back. Expect some back and intermittent leg aches and pains. 2. You may perform "counter-top" level activities (make a sandwich, richard with a project, etc.). 3. No bending or lifting of more than 10 pounds or back twisting of any nature (roll like a log when turning in bed). 4. You may ride in a car for 20-30 minutes at a time. No driving until after your first visit with your doctor. 5. Frequent changes of position and restricting sitting to 30 minutes at a time will help limit the amount of back spasms and stiffness you may experience. 6. You may discontinue the use of ambulatory aids (cane, crutches, etc.) once your strength and confidence allow. 7. You may administrator social welfare the shower and let water strike your incision when you arrive home at least once daily. Do not take a tub bath, sit in a hot tub or go into a swimming pool until after your first recheck in the office. SPECIAL CARE INSTRUCTIONS: VERY IMPORTANT TO READ AND REVIEW A. Your surgical incision has been closed with a cosmetic suture under the skin that will dissolve in about 6 weeks. In 14 days, you can use a pair of clean scissors and cut the suture that is left outside of the skin at the ends of your incision. 1. The small skin tapes can be removed 7 days after surgery if they have not fallen off by that point. 2. You may keep the wound open to air as much as possible to promote healing after post-op day number 5 unless told otherwise by your doctor. 3. If you think the wound looks like it is becoming infected (redness or worsening drainage) and/or you are experiencing fever, chill or worsening back pain and muscle spasms, contact the office so that we may evaluate you as soon as possible. B. Complications are uncommon, but please contact us if you have any signs or symptoms of: 1. wound infection (fever higher than 102.5 degrees F, redness, separation of wound, drainage, or increasing pain from the incision) 2. blood clots in legs (pain, swelling, redness and warmth in legs) 3. urinary tract infection (fever higher than 102.5 degrees F, burning upon urination or increased frequency of urination) 4. nerve problems (inability to walk on your toes or heels, numbness, loss of bowel or bladder control) 5. any other symptoms that concern you C. Please call the office at if you have any concerns or questions about your operation or recovery. D. No smoking! Smoking drastically decreases the chance of a solid fusion. E. Do not take any anti-inflammatory medications (Indocin, Advil, Motrin, Aspirin, Naprosyn, etc.) as these may inhibit the chance of a solid fusion. Tylenol is okay to take for pain. MANAGING PAIN AFTER SPINAL SURGERY 1. Narcotic medication is intended for short-term use and will be provided for surgical pain. Surgical pain usually lasts for a period of 4-6 weeks. Narcotic medication includes Percocet, Vicodin, Darvocet, Tylenol #3 or Lortab. 2. Longer-term pain is more appropriately treated with non-narcotic medication such as Tylenol ES. 3. Muscle spasm is not appropriately treated with narcotics. Muscle relaxers such as Soma, Flexeril or Skelaxin can be used along with Tylenol ES. 4. Remember that we all live with some "aches and pains". This is not unusual or uncommon after an injury or as we get older. a. Back pain is expected and may include muscle spasms for 4 to 6 weeks aft er surgery. The pain should gradually improve. If the pain worsens for no apparent reason, please contact the office. b. Intermittent leg pain may also be experienced and should not be concerned about unless it worsens for no apparent reason. If so, please contact the office. 5. We will provide appropriate medication within the normal guidelines of their prescribed use. We will also be very cautious and aware of potential abuse and extended duration of patients' medication needs. a. Pain medications are for your comfort and to assist with sleep and rest so that the tissue can heal. They are not provided in order to return to normal activity and should not be used through the day. To do so or worsening pain at night can result from ongoing tissue damage and development of tolerance to the prescribed medicine. 6. Please allow 2-3 days to process refills. Prescriptions will not be mailed but must be picked up at the office. FOLLOW UP VISIT: Keep your scheduled follow-up appointment. Any questions, please call the office at . Pending Studies at Discharge: No Stand-Alone Forms: My [facility] [employer], Smoking Cessation Medications and DC Order Prescriptions: New tramadol 50 mg tablet 50 mg PO Q6H PRN (Reason: pain, moderate) Qty: 30 0RF oxycodone 5 mg tablet 5 mg PO DAILY PRN (Reason: pain) Qty: 30 0RF Continued metformin 500 mg Tablet 500 mg PO QAM ibuprofen 800 mg Tablet 800 mg PO TID insulin lispro 100 unit/mL Insulin Pen 6 unit SUBCUT AC Xeljanz 5 mg Tablet 5 mg PO BID Robert Mckeon U-300 Insulin 300 unit/mL (1.5 mL) Insulin Pen 50 unit SUBCUT BID Ozempic 1 mg/dose (2 mg/1.5 mL) Pen Injector 1 mg SUBCUT WK aspirin 81 mg Capsule 81 mg PO QAM Discharge Orders: Discharge Order (Routine); Ordered 08/27/22 Ordered By: Dominguez Degroot Admission Data Admit Date/Time: 08/24/22 13:44 Attending Provider: Dominguez Degroot Admit Provider: Dominguez Degroot Primary Care Provider: Patrick Ortega Other Providers: Keon Hernandez ; Marcel Tena
--- NOTE | 2022-08-27 16:48 | Communication Note ---
Date of Service: August 27, 2022 Patient was discharged prior to me performing any bedside assessment. However, vital signs were stable, BSGs were reasonably controlled (mild elevations likely due to IV steroids), and labs were acceptable. Mild leukocytosis was possibly due to IV steroid use - no fevers per the record. Patient can resume her normal diabetes regimen. Creatinine remains stable. I suspect her BSGs will improve even further with the steroids being discontinued. Patient should f/u with her PCP within a week of discharge. Marcel Tena MD
== END 2022-08-27 11:40 | disposition home or self-care (01) | DRG 454 ==
LOC: ASU 07:33 → 3E 13:44